=== PATIENT | female | born 1955 | race Caucasian/White ===

== ENCOUNTER 2017-04-27 11:40 | Emergency (ER) | payer OTHER ==
[~2017-04-27] VITALS: Ht 165.1 cm; Wt 113.0 kg
[~2017-04-27 11:40] MED LIST: ACETAMIN500 M3 OR; ADVIL PM1 CAP OR; APREPITANT; ATIVAN1 MG PO; BACTRIM DS1 TAB PO; CLARITHROMYC500 MG PO; COLACE100 MG OR; COMPAZINE10 MG OR; DEXAMETHASON4 MG OR; DIPHENHYDRAM25 M2 OR; FEMARA2.5 MG OR; GNP POTASSIUM99 MG PO; HYDROCHLOROT25 MG PO; HYZAAR1 TA2 OR; IBUPROFEN600 MG OR; LEVOTHYROXIN125 MC1 PO; LEVOTHYROXIN75 MCG OR; LIPITOR10 MG PO; LORTAB5 PO; LOVENOX30 MG/0.3 SC; MICRO-K10 MEQ OR; OXYCONTIN10 MG PO; SIMVASTATIN10 MG PO; SIMVASTATIN5 MG; SYNTHROID100 MCG PO; TYLOX OR; ULTRAM50 M1 PO; VESICARE5 MG OR; VICODIN1 TAB OR; ZYRTEC10 MG PO; [UNRECOGNIZED DRUG - OTHER]; [UNRECOGNIZED DRUG - REMARK]
[2017-04-27 12:20] VITALS: BP 137/84
[2017-04-27] MEDS ORDERED: BACTRIM DS1 TAB PO (12:20)
[2017-04-27] MEDS ORDERED: LEVAQUIN750 M1 PO (12:20)
== END 2017-04-27 12:20 | disposition home or self-care (01) | DRG 605 ==
LOC: ED 11:40
DX: S91.135A Puncture wound without foreign body of left lesser toe(s) without damage to nail, initial encounter (principal); W45.0XXA Nail entering through skin, initial encounter; Y93.H3 Activity, building and construction; Y92.009 Unspecified place in unspecified non-institutional (private) residence as the place of occurrence of the external cause

== ENCOUNTER 2018-06-20 09:00 | Outpatient (RCR) | payer MEDICARE, OTHER ==
[~2018-06-20 09:00] MED LIST changes: +LEVAQUIN750 M1 PO
== END 2018-06-20 10:00 | disposition home or self-care (01) ==
LOC: PT 09:00
PROVIDERS: ATTEND Orthopaedic Surgery
DX: M17.0 Bilateral primary osteoarthritis of knee (principal); Z96.653 Presence of artificial knee joint, bilateral; Z96.642 Presence of left artificial hip joint; Z47.1 Aftercare following joint replacement surgery

== ENCOUNTER 2022-01-12 07:59 | Emergency (ER) | payer MEDICARE, OTHER ==
[~2022-01-12] VITALS: Ht 165.1 cm; Wt 109.0 kg
[2022-01-12 08:09] VITALS: BP 162/84
[2022-01-12 08:27] VITALS: BP 134/69
[2022-01-12 08:30] LABS: HEMATOCRIT 37.4 % (37.0-47.0); HEMOGLOBIN 11.9 g/dl (12.0-16.0); IMMATURE GRANULOCYTES 0.3 % (0.0-5.0); MEAN CELL VOLUME 90.6 fL CALC (80.0-100.0); MEAN CORPUSCULAR HGB 28.8 pG CALC (26.0-32.0); MEAN CORPUSCULAR HGB CONC 31.8 g/dL CAL (32.0-36.0); NEUT# 4.97 thou/uL (2.00-7.15); RED BLOOD COUNT 4.13 mill/uL (4.20-5.60); RED CELL DISTRI WIDTH 15.9 % (11.5-15.5)
[2022-01-12 08:41] VITALS: BP 138/70
[2022-01-12 08:50] LABS: ALBUMIN 4.4 g/dL (3.2-5.0); ALKALINE PHOSPHATASE 101 u/l (38-126); ANION GAP 15 (6-22 (CALC)); BILIRUBIN, TOTAL 0.5 mg/dL (0.0-1.4); BUN 19 mg/dL (8-23); BUN/CREATININE RATIO 27 (12-20 (CALC)); CARBON DIOXIDE 28 mmol/l (22-30); CHLORIDE 99 mmol/l (95-108); CREATININE 0.7 mg/dL (0.5-1.0); GFR FOR AFR.AMER. > 60 ML/MIN (>=60 (CALC)); GFR OTHER RACES > 60 ML/MIN (>=60 (CALC)); SGOT/AST 41 u/l (9-36); SODIUM 138 mmol/l (137-146); TOTAL PROTEIN 7.8 g/dL (6.3-8.2)
[2022-01-12 08:52] LABS: POTASSIUM 3.5 mmol/l (3.5-5.1)
[2022-01-12 09:01] VITALS: BP 133/72
[2022-01-12 09:21] VITALS: BP 132/72
[2022-01-12 09:41] VITALS: BP 132/72
== END 2022-01-12 09:45 | disposition left against medical advice (07) ==
LOC: ED 07:59
PROVIDERS: Family Medicine
DX: R07.9 Chest pain, unspecified (principal); I10 Essential (primary) hypertension; E66.01 Morbid (severe) obesity due to excess calories; Z90.12 Acquired absence of left breast and nipple; Z85.3 Personal history of malignant neoplasm of breast; Z20.822 Contact with and (suspected) exposure to COVID-19; Z53.29 Procedure and treatment not carried out because of patient's decision for other reasons

== ENCOUNTER 2022-02-12 04:36 | Emergency (ER) | payer MEDICARE, OTHER | END 2022-02-12 05:24 | disposition left against medical advice (07) | LOC: ED 04:36 → LWOBS 05:14 | DX: Z53.21 Procedure and treatment not carried out due to patient leaving prior to being seen by health care provider (principal) ==